=== PATIENT | female | born 1960 | race Caucasian/White ===

== ENCOUNTER 2020-04-11 09:10 | Emergency (ER) | payer OTHER, SELFPAY ==
[2020-04-11 09:15] VITALS: BP 147/81; PULSE 64; RESP 16; TEMP 36.7; O2SAT 99
--- NOTE | 2020-04-11 09:47 | W.ED.GENAD ---
Discharge Plan Disposition Patient Disposition: HOME Condition: Stable Discharge Details Clinical Impression: Ganglion cyst ED Provider: Niraj Ronquillo Home Meds and New Rx's Prescriptions: Continued albuterol sulfate 90 mcg/actuation Aerosol Powdr Breath Activated 2 inh INHALATION PRN PRNRF: 0 Discharge Instructions Instructions: Ganglion Cysts (ED) Additional Instructions: It appears as though you have a noninfected ganglion cyst. Splint offered and declined. [id number] Tylenol and/or Motrin as directed for discomfort. Cool and/or warm compresses as tolerated. Please watch for new or worsening symptoms and return to the ER for any concerns. I am placing you on the orthopedic callback list, I recommend contacting their office in the next 24 hours to set up an outpatient appointment for more definitive care. Referrals: Celestino Prajapati MD [ [facility] STAFF PHYSICIAN] - Medical Decision Making 60-year-old female, [employer] by aria, [id number] patient presenting for nodule to her right thumb. Clinically this appears to be a ganglion cyst. No signs of septic joint, she has synovitis, gout, cellulitis, etc. We discussed options. There is no clear indication for x-ray. Splint offered and declined. Will place on the orthopedic list for more definitive care. Patient will call orthopedics in the next 24 hours to establish outpatient care, otherwise will watch for new or evolving symptoms and return to the ER for any concerns. Medical Records Medical records reviewed: Yes I reviewed the patient's medical records. HPI General Mode of arrival: ambulatory. Date/Time Provider Initiated Documentation: 04/11/20 09:29. Limitations to Documentation: no limitations. Information obtained by: patient. 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 She has been in the area for the past 2 weeks and will be here through the beginning of the next year. She reports that she has noticed a small lump on her right thumb, unknown exactly how long its been there but it has been getting more painful and larger over the past week or so. Denies redness, fever, numbness or weakness. Reports a mild altered sensation directly over the lump. She is able to move her thumb freely but reports that movement increases her mild pain to more moderate pain. Denies any obvious known trauma. Denies any other joint pain. Related Data Home Medications Medication Instructions Recorded Confirmed albuterol sulfate 2 inh INHALATION PRN PRN 04/11/20 04/11/20 Allergies Allergy/AdvReac Type Severity Reaction Status Date / Time Latex, Natural Rubber Allergy Severe anaphylaxis Unverified 04/11/20 09:23 General Stated Complaint: Orthopedic YUE: 3 Review of Systems Constitutional Constitutional: Denies fever(s) Musculoskeletal Musculoskeletal: Denies arthralgias, Denies joint swelling, Denies numbness and Denies stiffness Integumentary/Breasts Skin/Breast: Denies erythema Neurologic Neurologic: Denies numbness [facility] Medical History Asthma Social History Smoking/Tobacco Use Status: Former Tobacco Use Alcohol Intake: current Alcohol Intake frequency: a few times a month Drug use: Never Substance use type: does not use Details: quit smoking 20 years ago Do you feel safe at home: Yes Do you feel safe in your relationship?: Yes Exam Const General: cooperative, healthy appearing, comfortable and no acute distress Orientation: alert and awake [facility] Head: normal to inspection, normocephalic and atraumatic Eyes Conjunctivae: conjunctivae normal Sclera: sclerae normal Neck Neck: normal visual inspection, full ROM, trachea midline and supple Resp Effort & Inspection: normal respiratory effort and able to speak in complete sentences Cardio Rate: regular rate Rhythm: regular rhythm Skin General skin exam: no rashes or lesions noted Neuro General: patient alert, patient awake, moves all extremities and no focal motor deficits Motor: muscle tone normal throughout Sensory Exam: no sensory deficits noted Extrem Hand/finger images: 1. There is a firm slightly tender nonmobile nodule without erythema or warmth. There is no pointing abscess. Skin is intact. Full range of motion. Neuro, vascular, tendon intact. Normal capillary refill Psych Appearance: grossly normal Mental Status: mental status grossly normal Course Vital Signs Vital signs: Vital Signs Temperature 36.7 C 04/11/20 09:15 Pulse 64 04/11/20 09:15 Respiratory Rate 16 04/11/20 09:15 Blood Pressure 147/81 H 04/11/20 09:15 Pulse Oximetry 99 04/11/20 09:15 Temperature 36.7 C 04/11/20 09:15 Temperature Source Oral 04/11/20 09:15 Pulse 64 04/11/20 09:15 Respiratory Rate 16 04/11/20 09:15 Respiratory Effort 04/11/20 09:25 Blood Pressure 147/81 H 04/11/20 09:15 Blood Pressure Position Sitting 04/11/20 09:15 Pulse Oximetry 99 04/11/20 09:15 Oxygen Delivery Method Room Air 04/11/20 09:15 Oxygen Flow Rate 0 04/11/20 09:15 Pain Level 3 04/11/20 09:26 Comment 04/11/20 09:15
== END 2020-04-11 10:18 | disposition home or self-care (01) ==
LOC: ER 10:22
PROVIDERS: Emergency Provider Physician Assistant
DX: M67.441 Ganglion, right hand (principal)
CPT/HCPCS: 99282; 99283